=== PATIENT | male | born 1995 | race African-American/Black ===

== ENCOUNTER 2020-06-04 22:56 | Emergency (ER) | payer MEDICAID, SELFPAY ==
[2020-06-04 22:57] VITALS: BP 120/81; PULSE 99; RESP 18; TEMP 36.4; O2SAT 96; BMI 32.3
--- NOTE | 2020-06-04 23:05 | ED.VIS.GEN ---
History of Present Illness Chief Complaint: Shortness of Breath Detail of Chief Complaint: Asthma attack Informant: Patient Onset: Today Context: Sudden Onset Timing: Continuous Quality: Shortness of breath and wheezing Location: Lungs Current Severity: Mild Maximum Severity: Moderate Worsened by: Activity Relieved by: Nothing, albuterol MDI empty Associated Symptoms: None Narrative: Patient is 24-year-old male with history of asthma since childhood. He presents with shortness of breath and wheezing. He states his albuterol MDI is empty. He does not recall last him was on prednisone. He denies fever or chills. He denies rhinorrhea, congestion or postnasal drainage. He denies sore throat. He denies loss of taste or smell. He denies cough. He denies exposure to anyone with Covid. He denies headache. He denies visual, ocular auditory symptoms. He denies GI symptoms. He denies rash. He denies myalgias or arthralgias. He does smoke 5 to 6 cigarettes a day. Prior similar symptoms: No Recent Illness/Hospitalization: No - Past Medical History (1) History of asthma Status: Acute Past Medical History - Allergies and Home Meds Allergies/Adverse Reactions: Allergies No Known Allergies Allergy (Verified 06/04/20 22:59) Prior records reviewed: No - No prior visits Surgical History: no surgical history Lives: With Family Smoking Status: Light Smoker (<10/day) Alcohol: None Drugs: None Review of Systems General: Denies: Chills, Fever, Malaise, Subjective Eyes: Denies: Visual changes - bilaterally, Blurred Vision - bilaterally ENT: Denies: Bilateral ear pain, Rhinorrhea, Sore throat Cardiovascular: Denies: Chest pain, Palpitations Respiratory: Reports: Dyspnea, Dyspnea on exertion. Denies: Cough, Sputum, Orthopnea, Paroxysmal nocturnal dyspnea Gastrointestinal: Denies: Abdominal pain, Nausea, Vomiting, Diarrhea, Melena, Hematochezia Musculoskeletal: Denies: Myalgias, Arthralgias, Swelling, Extremity Pain Skin: Denies: Rash, Wounds Neurological: Denies: Headache, Weakness, Parasthesia Hematologic: Denies: Easy bruising, Easy bleeding Allergy: Denies: Uticaria Physical Exam Vital Signs/Narrative: Vital Signs Temp Pulse Resp BP Pulse Ox 06/04/20 22:57 97.6 F L 99 18 120/81 H 96 Inital Vital Signs reviewed: Yes General: Well nourished, Well developed, No Acute Distress Head: Normocephalic, Atraumatic Eyes: Perrl ENT: Moist mucous membranes, No rhinorrhea Neck: Supple, Nontender, No lymphadenopathy, No JVD Cardiovascular: Regular rate, Regular rhythm, No murmurs, Normal S1, Normal S2 Respiratory: No distress, Chest nontender, Wheezing - Throughout, Decreased Air Movement. Negative for: CTA bilaterally Abdomen: Soft, Nontender, Nondistended, Normal bowel sounds Extremities: Nontender, No edema Skin: Normal color, No rash, No Trauma. Negative for: Cyanosis, Diaphoresis, Jaundice Neurological: Alert, Oriented x3, Cranial nerves II-XII grossly intact, Normal Strength, Normal Sensation Psychological: Normal affect, Normal Mood Diagnostic/Tx/Re-eval - Medical Decision Making Patient with exacerbation of asthma. Since there is no concern for infectious cause x-ray was not obtained. Patient treated with albuterol and prednisone. Will reevaluate after aerosol treatments. Also will write prescription for albuterol MDI. He states he does have a spacer and does use the spacer. Patient is wheeze free. He would like to go home. Prescription for albuterol and Advair was dispensed. ED Disposition - Plan for ED Patient: Disposition: Home or Assisted Living Diagnosis: Asthma exacerbation Instructions: ED Asthma, Acute (Adult) Prescriptions: Fluticasone/Salmeterol [Advair 100-50 Diskus] 1 ea IH BID #1 blst.w.dev Prescription Printed Albuterol Inhaler [Ventolin Hfa] 2 puff INHALATION Q4H PRN PRN #1 inhaler PRN Reason: Wheezing Prescription Printed Referrals: Laura Doe [NON-STAFF] - 1-2 Weeks
[2020-06-04 23:10] VITALS: O2SAT 96
[2020-06-04] MEDS: predniSONE 20 MG Tablet 60 MG PO (23:14)
[2020-06-04] MEDS: Albuterol 2.5 MG/3 ML VIAL.NEB. INHALATION ×3 (23:17)
[2020-06-04 23:53] VITALS: PULSE 95; RESP 16
[2020-06-05 00:12] VITALS: O2SAT 94
== END 2020-06-05 00:13 | disposition home or self-care (01) ==
LOC: ED 23:58
PROVIDERS: Emergency Provider Emergency Medicine
DX: J45.901 Unspecified asthma with (acute) exacerbation (principal); F17.210 Nicotine dependence, cigarettes, uncomplicated
CPT/HCPCS: 94640; 99283